=== PATIENT | female | born 1950 | race Caucasian/White ===

== ENCOUNTER 2017-06-19 14:06 | Emergency (ER) | payer MEDICARE, BC ==
[2017-06-19] MEDS ORDERED: Aspirin Low Dose CHEW TAB* 81 MG PO ONE (15:16)
[2017-06-19] MEDS ORDERED: Labetalol IV* 5 MG/ML 20 ML VIAL IV PUSH ONE (15:17)
[2017-06-19] MEDS ORDERED: Triamterene/HCTZ 37.5-25 MG* CAP PO ONE (16:01)
[2017-06-19 16:14] LABS: Albumin 4.4 g/dL (3.2-5.2); BUN/Creatinine Ratio 14.5 (8-20); Calcium 9.4 mg/dL (8.6-10.3); EGFR African American 87.7 (>60); EGFR Non-African American 68.2 (>60); Globulin 2.5 g/dL (2-4); Potassium 3.7 mmol/L (3.5-5.0); Total Bilirubin 0.5 mg/dL (0.2-1.0); Total Protein 6.9 g/dL (6.4-8.9)
[2017-06-19 16:20] LABS: Hematocrit 34 % (35-47); Hemoglobin 11.5 g/dl (12.0-16.0); Mean Corpuscular HGB Conc 34 g/dl (31-36); Mean Corpuscular Hemoglobin 30 pg (27-31); Mean Corpuscular Volume 89 fL (80-97); Mean Platelet Volume 8 um3 (7.4-10.4); Red Blood Count 3.84 10^6/ul (4.0-5.4); Red Cell Distribution Width 13 % (10.5-15); White Blood Count 7.9 10^3/ul (3.5-10.8)
[2017-06-19 16:31] LABS: T4 8.39 mcg/mL (6.09-12.23)
--- NOTE | 2017-06-19 16:31 | RAD ---
INDICATION: Hypertension, headache. COMPARISON: There are no prior studies available for comparison. TECHNIQUE: Contiguous axial sections of the brain were obtained from the skull base to the vertex without contrast. FINDINGS: The ventricles, cisterns and sulci are within normal limits. No significant focal abnormality or mass effect is seen. There is no evidence for hemorrhage. No significant focal osseous abnormality is seen. The visualized portion of the paranasal sinuses and mastoid air cells appear clear. IMPRESSION: NO EVIDENCE FOR ACUTE INTRACRANIAL ABNORMALITY.
[2017-06-19 16:34] LABS: TSH (Thyroid Stimulating Horm) 0.05 mcIU/mL (0.34-5.60)
--- NOTE | 2017-06-19 16:42 | RAD ---
INDICATION: Hypertension. COMPARISON: There are no prior studies available for comparison. TECHNIQUE: Dual-energy PA and lateral views of the chest were obtained. FINDINGS: The heart is within normal limits in size. Mediastinal and hilar contours appear within normal limits. The lungs are clear. No pleural effusion is present. There are several surgical clips which project overlying the left breast and axilla. IMPRESSION: NO EVIDENCE FOR ACTIVE CARDIOPULMONARY DISEASE.
[2017-06-19 18:31] VITALS: BP 154/78
--- NOTE | 2017-06-20 15:21 | ED ---
Solitario Bangura Nilda, scribed for Levi Ansari MD on 06/19/17 at 1552 . Hypertension - HPI Summary HPI Summary: This patient is a 67 year old F presenting to [facility] with a chief complaint of constant HTN for the past week. The patient rates the pain 0/10 in severity. Pt states symptoms began to occur after she found she was having issues with her thyroid. Patient reports SOB, palpitations, unsteadiness, and headache. Patient denies cough, fever, CP, and recent lengthy travel. Symptoms aggravated by exertion and alleviated by rest. Pt is currently on medication for thyroid and high cholesterol. PMHx includes breast CA, HLD, and thyroid disorder. - History of Current Complaint Chief Complaint: EDHypertension Stated Complaint: HIGH BLOOD PRESSURE Time Seen by Provider: 06/19/17 15:02 Hx Obtained From: Patient Onset/Duration: Started Days Ago, Still Present Timing: Constant Aggravating Factor(s): Exertion Alleviating Factor(s): Rest Associated Signs & Symptoms: Other: - SOB, palpitations, unsteadiness, and headache. Patient denies cough, fever, CP, and recent lengthy travel. Current Medications: Other - thyroid and high cholestrol - Allergies/Home Medications Allergies/Adverse Reactions: Allergies Allergy/AdvReac Type Severity Reaction Status Date / Time No Known Allergies Allergy Verified 06/19/17 14:33 PMH/Surg Hx/FS Hx/Imm Hx Endocrine/Hematology History: Reports: Hx Thyroid Disease Cardiovascular History: Reports: Hx Hypercholesterolemia GI History: Reports: Hx Diverticulosis Musculoskeletal History: Reports: Hx Arthritis - L3, Hx Back Problems - Narrowing of L3,4,5 disks Sensory History: Reports: Hx Cataracts, Hx Contacts or Glasses Opthamlomology History: Reports: Hx Cataracts, Hx Contacts or Glasses Psychiatric History: Reports: Hx Depression - Cancer History Cancer Type, Location and Year: BREAST - Surgical History Surgery Procedure, Year, and Place: BREAST RECON 2013. TOTAL PARODECTOMY. Tonsillectomy Hx Anesthesia Reactions: Yes - vomiting - Immunization History Date of Tetanus Vaccine: 2009 Date of Influenza Vaccine: Fall 2013 Infectious Disease History: No Infectious Disease History: Denies: Traveled Outside the [place] in Last 30 Days - Family History Known Family History: Positive: Cardiac Disease, Hypertension - Social History Alcohol Use: None Substance Use Type: Reports: None Smoking Status (MU): Former Smoker Review of Systems Negative: Fever Positive: Palpitations, Other - HTN. Negative: Chest Pain Positive: Shortness Of Breath - LOWERY. Negative: Cough Neurological: Other - unsteadiness Positive: Headache All Other Systems Reviewed And Are Negative: Yes Physical Exam - Summary Physical Exam Summary: VITAL SIGNS: Reviewed. GENERAL: Patient is a well-developed and nourished female who is lying comfortable in the stretcher. Patient is not in any acute respiratory distress. HEAD AND FACE: No signs of trauma. No ecchymosis, hematomas or skull depressions. No sinus tenderness. EYES: PERRLA, EOMI x 2, No injected conjunctiva, no nystagmus. EARS: Hearing grossly intact. Ear canals and tympanic membranes are within normal limits. MOUTH: Oropharynx within normal limits. NECK: Supple, trachea is midline, no adenopathy, no JVD, no carotid bruit, no c- spine tenderness, neck with full ROM. CHEST: Symmetric, no tenderness at palpation LUNGS: Clear to auscultation bilaterally. No wheezing or crackles. CVS: Regular rate and rhythm, S1 and S2 present, no murmurs or gallops appreciated. ABDOMEN: Soft, non-tender. No signs of distention. No rebound no guarding, and no masses palpated. Bowel sounds are normal. EXTREMITIES: FROM in all major joints, no edema, no cyanosis or clubbing. NEURO: Alert and oriented x 3. No acute neurological deficits. Speech is normal and follows commands. SKIN: Dry and warm Triage Information Reviewed: Yes Vital Signs On Initial Exam: Initial Vitals Temp Pulse Resp BP Pulse Ox 98.3 F 89 16 188/98 100 06/19/17 14:33 06/19/17 14:33 06/19/17 14:33 06/19/17 14:33 06/19/17 14:33 Vital Signs Reviewed: Yes Diagnostics - Vital Signs Vital Signs Temp Pulse Resp BP Pulse Ox 06/19/17 14:33 98.3 F 89 16 188/98 100 - Laboratory Result Diagrams: 06/19/17 15:30 06/19/17 15:30 Lab Statement: Any lab studies that have been ordered have been reviewed, and results considered in the medical decision making process. - Radiology CXR Radiology Interpretation Completed By: Radiologist - no evidence for active cardiopulmonary disease. ED physician has reviewed this radiology report and agrees. - CT Brain CT Interpretation Completed By: Radiologist - CT Brain, per radiologist, reveals no evidence for acute intracranial abnormality ED physician has reviewed this radiology report and agrees. - EKG 1550 Cardiac Rate: NL EKG Rhythm: Sinus Rhythm - 68 bpm EKG Interpretation: no ST elevation, nml axis. Re-Evaluation - Re-Evaluation First Eval Re-Evaluation Time: 17:25 Comment: Pt feeling better. Headache has subsided. Hypertension Course/Dx - Course Assessment/Plan: This patient is a 67 year old F presenting to [facility] with a chief complaint of constant HTN for the past week. The patient rates the pain 0/ 10 in severity. Pt states symptoms began to occur after she found she was having issues with her thyroid. Patient reports SOB, palpitations, unsteadiness , and headache. Patient denies cough, fever, CP, and recent lengthy travel. Symptoms aggravated by exertion and alleviated by rest. Pt is currently on medication for thyroid and high cholesterol. PMHx includes breast CA, HLD, and thyroid disorder. Pending labs, EKG, CXR, and CT Brain. An EKG reveals NSR, 68 bpm, no ST elevation, nml axis. CXR, per radiologist, reveals no evidence for active cardiopulmonary disease. CT Brain, per radiologist, reveals no evidence for acute intracranial abnormality. ED physician has reviewed these radiology reports and agrees. Pt's blood pressure at present is 151/67. Pt is feeling better. MARCELO has resolved. Blood work without significant abnormalities. She was given one dose of metropolol. Her symptoms have subsided. Pt would like a follup with PCP to see if she will be place on Anti-hypertensive medication. The pt is hemodynamically stable, alert and oriented x3. Pt will be D/C with a diagnosis of high blood pressure and headache. - Diagnoses Provider Diagnoses: High blood pressure, Headache Discharge - Discharge Plan Condition: Stable Disposition: HOME Patient Education Materials: Hypertension (ED), General Headache (ED) Referrals: Renuka Giles NP [Primary Care Provider] - As Soon As Possible Additional Instructions: RETURN TO THE EMERGENCY DEPARTMENT FOR CHANGING OR WORSENING SYMPTOMS. The documentation as recorded by the Solitario morton Nilda accurately reflects the service I personally performed and the decisions made by , Levi Ansari MD.
== END 2017-06-19 18:47 | disposition home or self-care (01) ==
LOC: ED 14:06
DX: I10 Essential (primary) hypertension (principal); R51 Headache; Z87.891 Personal history of nicotine dependence; Z85.3 Personal history of malignant neoplasm of breast; E78.00 Pure hypercholesterolemia, unspecified; E78.5 Hyperlipidemia, unspecified; E07.9 Disorder of thyroid, unspecified
CPT/HCPCS: 36415; 70450; 71020; 80053; 82550; 84436; 84443; 84484; 85025; 93005; 99283; A9270-GY